=== PATIENT | female | born 1960 ===

== ENCOUNTER 2017-08-20 12:54 | Outpatient (CLI) | payer OTHER ==
[~2017-08-20 12:54] MED LIST: TUSSI PRES-B L120 M1 PO; ZITHROMAX TRI-500 MG PO
[2017-08-28] MEDS ORDERED: VITAMIN D1000 UNI1 PO (11:08)
[2017-08-28] MEDS ORDERED: PROGESTERONE200 MG PO (11:08)
[2017-08-28] MEDS ORDERED: CALTRATE 600+D1 EAC1 PO (11:09)
== END 2017-08-20 17:07 | disposition home or self-care (01) ==
LOC: LAB 12:54
DX: N95.1 Menopausal and female climacteric states (principal); E03.8 Other specified hypothyroidism; D64.89 Other specified anemias; E78.4 Other hyperlipidemia; M81.6 Localized osteoporosis [Lequesne]; M83.3 Adult osteomalacia due to malnutrition

== ENCOUNTER 2017-09-04 05:45 | Day surgery (SDC) | payer OTHER ==
[~2017-09-04 05:45] MED LIST changes: +CALTRATE 600+D1 EAC1 PO; +PROGESTERONE200 MG PO; +VITAMIN D1000 UNI1 PO
[2017-09-04] MEDS ORDERED: ULTRACET PO (08:53)
[2017-09-04] MEDS ORDERED: DUI500 PO (08:53)
== END 2017-09-04 14:15 | disposition home or self-care (01) ==
LOC: CIR.AMB 05:45
DX: S83.232A Complex tear of medial meniscus, current injury, left knee, initial encounter (principal); M94.262 Chondromalacia, left knee

== ENCOUNTER 2017-11-28 13:47 | Emergency (ER) | payer OTHER ==
[~2017-11-28] VITALS: Ht 149.9 cm; Wt 64.4 kg
[~2017-11-28 13:47] MED LIST changes: +DUI500 PO; +ULTRACET PO
[2017-11-28] MEDS ORDERED: NORFLEX PO (14:02)
[2017-11-28] MEDS ORDERED: CATAFLAN PO (14:02)
== END 2017-11-28 14:57 | disposition home or self-care (01) ==
LOC: ER 13:47
DX: M54.2 Cervicalgia (principal)

== ENCOUNTER → 2018-02-19 08:37 | Outpatient (CLI) | payer OTHER ==
[~2018-02-19 08:37] MED LIST changes: +CATAFLAN PO; +NORFLEX PO
== END | disposition home or self-care (01) ==
LOC: LAB 08:37
DX: E78.2 Mixed hyperlipidemia (principal); I11.9 Hypertensive heart disease without heart failure; E56.8 Deficiency of other vitamins; N39.0 Urinary tract infection, site not specified; Z12.11 Encounter for screening for malignant neoplasm of colon; R19.5 Other fecal abnormalities; E55.9 Vitamin D deficiency, unspecified; E11.9 Type 2 diabetes mellitus without complications; C18.0 Malignant neoplasm of cecum; K92.1 Melena; N28.89 Other specified disorders of kidney and ureter; E03.8 Other specified hypothyroidism; D64.89 Other specified anemias

== ENCOUNTER 2018-02-19 12:44 | Outpatient (CLI) | payer OTHER | END 2018-02-19 13:00 | disposition home or self-care (01) | LOC: TOM 12:44 | DX: S82.891A Other fracture of right lower leg, initial encounter for closed fracture (principal) ==

== ENCOUNTER 2018-07-31 07:37 | Outpatient (CLI) | payer OTHER | END 2018-07-31 08:17 | disposition home or self-care (01) | LOC: LAB 07:37 | DX: E03.8 Other specified hypothyroidism (principal); D50.8 Other iron deficiency anemias; E78.2 Mixed hyperlipidemia; I11.9 Hypertensive heart disease without heart failure; E56.8 Deficiency of other vitamins; N39.0 Urinary tract infection, site not specified; Z12.11 Encounter for screening for malignant neoplasm of colon; E55.9 Vitamin D deficiency, unspecified; N19 Unspecified kidney failure; E11.9 Type 2 diabetes mellitus without complications; R80.8 Other proteinuria; C18.0 Malignant neoplasm of cecum; K92.1 Melena; C18.9 Malignant neoplasm of colon, unspecified ==

== ENCOUNTER 2018-08-07 09:26 | Outpatient (CLI) | payer OTHER | END 2018-08-07 11:31 | disposition home or self-care (01) | LOC: LAB 09:26 | DX: D47.2 Monoclonal gammopathy (principal); M32.8 Other forms of systemic lupus erythematosus ==

== ENCOUNTER 2019-09-25 10:16 | Outpatient (CLI) | payer OTHER | END 2019-09-25 10:43 | disposition home or self-care (01) | LOC: LAB 10:16 | PROVIDERS: ATTEND Internal Medicine | DX: Z13.89 Encounter for screening for other disorder (principal) ==

== ENCOUNTER 2019-11-28 15:58 | Outpatient (CLI) | payer OTHER | END 2019-11-28 15:59 | disposition home or self-care (01) | LOC: PPH VACUNA 15:58 | DX: Z23 Encounter for immunization (principal) ==

== ENCOUNTER 2020-06-14 16:55 | Outpatient (CLI) | payer OTHER | END 2020-06-14 17:07 | disposition home or self-care (01) | LOC: LAB 16:55 | DX: Z20.828 Contact with and (suspected) exposure to other viral communicable diseases (principal) ==

== ENCOUNTER 2020-07-15 17:58 | Outpatient (CLI) | payer OTHER | END 2020-07-15 18:50 | disposition home or self-care (01) | LOC: LAB 17:58 | PROVIDERS: ATTEND Emergency Medicine Pediatric Emergency Medicine | DX: Z03.818 Encounter for observation for suspected exposure to other biological agents ruled out (principal) ==

== ENCOUNTER 2020-08-05 17:20 | Outpatient (CLI) | payer OTHER | END 2020-08-05 17:30 | disposition home or self-care (01) | LOC: LAB 17:20 | PROVIDERS: ATTEND Emergency Medicine Pediatric Emergency Medicine | DX: Z03.818 Encounter for observation for suspected exposure to other biological agents ruled out (principal) ==

== ENCOUNTER 2020-10-06 07:03 | Outpatient (CLI) | payer OTHER | END 2020-10-06 07:06 | disposition home or self-care (01) | LOC: MAMO-SONO 07:03 | PROVIDERS: ATTEND Internal Medicine | DX: N64.59 Other signs and symptoms in breast (principal); Z12.31 Encounter for screening mammogram for malignant neoplasm of breast; Z87.898 Personal history of other specified conditions ==

== ENCOUNTER → 2020-10-06 07:16 | Outpatient (CLI) | payer OTHER | END | disposition home or self-care (01) | LOC: LAB 07:16 | PROVIDERS: ATTEND Internal Medicine | DX: Z00.8 Encounter for other general examination (principal) ==

== ENCOUNTER 2020-12-09 08:00 | Outpatient (CLI) | payer OTHER | END 2020-12-09 08:30 | disposition home or self-care (01) | LOC: PPH VACUNA 08:00 | PROVIDERS: ATTEND Emergency Medicine Pediatric Emergency Medicine | DX: Z23 Encounter for immunization (principal) ==

== ENCOUNTER 2021-01-19 08:00 | Outpatient (CLI) | payer OTHER | END 2021-01-19 08:30 | disposition home or self-care (01) | LOC: PPH VACUNA 08:00 | PROVIDERS: ATTEND Emergency Medicine Pediatric Emergency Medicine | DX: Z23 Encounter for immunization (principal) ==

== ENCOUNTER 2021-01-20 17:21 | Outpatient (CLI) | payer OTHER | END 2021-01-20 18:00 | disposition home or self-care (01) | LOC: LAB 17:21 | PROVIDERS: ATTEND Internal Medicine | DX: Z03.818 Encounter for observation for suspected exposure to other biological agents ruled out (principal) ==

== ENCOUNTER 2021-03-04 13:16 | Outpatient (CLI) | payer OTHER | END 2021-03-04 13:21 | disposition home or self-care (01) | LOC: LAB 13:16 | DX: Z03.818 Encounter for observation for suspected exposure to other biological agents ruled out (principal) ==

== ENCOUNTER 2021-03-09 14:33 | Outpatient (CLI) | payer OTHER | END 2021-03-09 14:38 | disposition home or self-care (01) | LOC: LAB 14:33 | PROVIDERS: ATTEND Emergency Medicine Pediatric Emergency Medicine | DX: Z03.818 Encounter for observation for suspected exposure to other biological agents ruled out (principal) ==

== ENCOUNTER 2021-08-04 09:01 | Outpatient (CLI) | payer OTHER ==
[~2021-08-04 09:01] MED LIST changes: +IBU600 MG PO; +KETOROLAC60 MG/2 M1 IM; +NORFLEX100MG PO
== END 2021-08-04 10:20 | disposition home or self-care (01) ==
LOC: LAB 09:01
PROVIDERS: ATTEND Emergency Medicine Pediatric Emergency Medicine
DX: Z20.822 Contact with and (suspected) exposure to COVID-19 (principal)

== ENCOUNTER 2021-10-12 12:03 | Outpatient (CLI) | payer OTHER | END 2021-10-12 16:52 | disposition home or self-care (01) | LOC: LAB 12:03 | PROVIDERS: ATTEND Emergency Medicine Pediatric Emergency Medicine | DX: Z03.818 Encounter for observation for suspected exposure to other biological agents ruled out (principal) ==

== ENCOUNTER 2021-11-18 16:55 | Outpatient (CLI) | payer OTHER | END 2021-11-18 23:00 | disposition home or self-care (01) | LOC: LAB 16:55 | PROVIDERS: ATTEND Emergency Medicine Pediatric Emergency Medicine | DX: Z20.822 Contact with and (suspected) exposure to COVID-19 (principal) ==

== ENCOUNTER 2021-12-23 08:15 | Outpatient (CLI) | payer OTHER | END 2021-12-23 23:00 | disposition home or self-care (01) | LOC: LAB 08:15 | PROVIDERS: ATTEND Emergency Medicine Pediatric Emergency Medicine | DX: Z20.818 Contact with and (suspected) exposure to other bacterial communicable diseases (principal) ==

== ENCOUNTER 2022-01-03 16:00 | Outpatient (CLI) | payer OTHER | END 2022-01-04 16:05 | disposition home or self-care (01) | LOC: PPH VACUNA 16:00 | PROVIDERS: ATTEND Emergency Medicine Pediatric Emergency Medicine | DX: Z23 Encounter for immunization (principal) ==

== ENCOUNTER 2022-05-09 08:19 | Outpatient (CLI) | payer OTHER | END 2022-05-09 23:00 | disposition home or self-care (01) | LOC: LAB 08:19 | PROVIDERS: ATTEND General Practice | DX: R50.9 Fever, unspecified (principal); R05.8 Other specified cough; R06.02 Shortness of breath; Z20.822 Contact with and (suspected) exposure to COVID-19 ==

== ENCOUNTER 2022-07-19 07:50 | Outpatient (CLI) | payer OTHER | END 2022-07-19 07:55 | disposition home or self-care (01) | LOC: LAB 07:50 | PROVIDERS: ATTEND Internal Medicine Geriatric Medicine | DX: D50.9 Iron deficiency anemia, unspecified (principal); E03.9 Hypothyroidism, unspecified; E78.2 Mixed hyperlipidemia; I11.9 Hypertensive heart disease without heart failure; E56.8 Deficiency of other vitamins; N39.0 Urinary tract infection, site not specified; Z12.11 Encounter for screening for malignant neoplasm of colon; R19.5 Other fecal abnormalities; E55.9 Vitamin D deficiency, unspecified; N19 Unspecified kidney failure; E11.9 Type 2 diabetes mellitus without complications ==

== ENCOUNTER 2022-12-15 10:00 | Outpatient (CLI) | payer OTHER | END 2022-12-15 10:10 | disposition home or self-care (01) | LOC: PPH VACUNA 10:00 | PROVIDERS: ATTEND Emergency Medicine Pediatric Emergency Medicine | DX: Z23 Encounter for immunization (principal) ==

== ENCOUNTER 2023-06-15 07:42 | Outpatient (CLI) | payer OTHER ==
[2023-06-15 09:02] LABS: HEMATOCRIT 36.1 % (36.0-45.00); HEMOGLOBIN 11.7 g/dL (12.0-15.00); MEAN CORPUSCULAR HEMOGLOBIN 21.4 pg (27.00-32.0); MEAN CORPUSCULAR HGB CONC 32.3 g/dl (32.0-36.0); PLATELET COUNT 291 K/uL (150-450); RED BLOOD COUNT 5.45 M/uL (4.00-6.00); RED CELL DISTRIBUTION WIDTH 15.9 % (11.5-14.5)
[2023-06-15 09:04] LABS: PH,URINE 5.5 (5.0-8.0); URINE APPEARANCE Clear; URINE BILIRRUBIN Negative (NEGATIVE); URINE BLOOD Trace; URINE COLOR Yellow; URINE GLUCOSE Negative (NEGATIVE); URINE LEUKOCYTE Trace; URINE NITRATE Negative; URINE PROTEIN Negative (NEGATIVE); URINE UROBILINOGEN 0.2 E.U./dl
[2023-06-15 09:07] LABS: MEAN CELL VOLUME 66.2 fL (80.00-100.00)
[2023-06-15 09:08] LABS: URINE BACTERIA 23.9 uL (0.0-1933); URINE EPITHELIAL CELLS 8.9 uL (0.0-38.8); URINE RBC 6.4 uL (0.0-20.8)
[2023-06-15 10:04] LABS: ALBUMIN 3.6 gm/dL (3.4-5.0); BILIRUBIN TOTAL 0.43 mg/dL (0.3-1.2); CALCIUM 8.6 mg/dL (8.5-10.1); CHOL HDL RATIO 1.9 (0-5.0); CREATININE SERUM 0.64 mg/dL (0.55-1.02); GFR 94.34; GLOBULINA 3.3 G/DL (2.4-3.5); POTASSIUM 4.23 mEq/L (3.5-5.1); TOTAL PROTEIN 6.9 gm/dL (6.4-8.2); TSH 1.27 uIU/mL (0.358-3.74)
[2023-06-16 15:11] LABS: hav igm Negative (Negative); hcv Non Reactive (Non Reactive); hep b c Negative (Negative)
[2023-06-18 10:15] LABS: ob NEGATIVE (NEGATIVE)
== END 2023-06-15 07:52 | disposition home or self-care (01) ==
LOC: LAB 07:42
PROVIDERS: ATTEND Obstetrics & Gynecology
DX: Z12.11 Encounter for screening for malignant neoplasm of colon (principal); D64.9 Anemia, unspecified; E03.8 Other specified hypothyroidism; N95.1 Menopausal and female climacteric states; I10 Essential (primary) hypertension; C51.9 Malignant neoplasm of vulva, unspecified; N30.00 Acute cystitis without hematuria; E83.51 Hypocalcemia; A64 Unspecified sexually transmitted disease; N39.0 Urinary tract infection, site not specified; R97.8 Other abnormal tumor markers; R79.89 Other specified abnormal findings of blood chemistry; E55.9 Vitamin D deficiency, unspecified; A60.9 Anogenital herpesviral infection, unspecified; L29.9 Pruritus, unspecified; K85.90 Acute pancreatitis without necrosis or infection, unspecified; L93.0 Discoid lupus erythematosus

== ENCOUNTER 2023-06-15 10:04 | Outpatient (CLI) | payer OTHER | END 2023-06-15 13:55 | disposition home or self-care (01) | LOC: MAMO-SONO 10:04 | PROVIDERS: ATTEND Obstetrics & Gynecology | DX: N60.11 Diffuse cystic mastopathy of right breast (principal); N60.12 Diffuse cystic mastopathy of left breast ==

== ENCOUNTER 2023-06-15 15:42 | Outpatient (CLI) | payer OTHER | END 2023-06-15 15:45 | disposition home or self-care (01) | LOC: NUCLEAR 15:42 | PROVIDERS: ATTEND Obstetrics & Gynecology | DX: M81.0 Age-related osteoporosis without current pathological fracture (principal) ==

== ENCOUNTER → 2024-09-23 | Emergency (ER) | payer OTHER ==
[~2024-09-23] VITALS: Ht 149.9 cm; Wt 64.4 kg
[~2024-09-23] MED LIST changes: +0.9 % SODIUM CHLORIDE 500 ML IV ONE; +BENZONATATE 200 MG CAPSULE PO ONE; +BENZONATATE200 M1 PO; +CEFTRIAXONE SODIUM 1,000 MG VIAL IV ONE; +FAMOtidine 10 MG/ML (4ML VIAL) IV ONE; +LEVALBUTER0.63 MG/3 IH; +LEVALBUTEROL HCL 1.25 MG/3 ML SOLUTION IH ONE; +METHYLPREDNISOLONE SOD SUCC 125 MG VIAL IV ONE; +ONDANSETRON HCL 2 MG/ML VIAL IV ONE; +ZYRTEC10 MG PO
[2024-09-23 09:33] LABS: BASO % 0.3 % (0.1-1.2); EOS # 0.03 (0.04-0.54); EOS % 0.5 % (0.7-7.0); LYMPH # 0.67 (1.18-3.74); LYMPH % 10.1 % (19.3-53.1); MEAN PLATELET VOLUME 11.70 fl (9.4-12.4); MONO # 0.52 (0.24-0.82); MONO % 7.9 % (4.7-12.5); NEUT # 5.35 (1.56-6.13); NEUT % 80.9 % (34.0-71.1); RED CELL DISTRIBUTION WIDTH 15.7 % (11.6-14.4)
[2024-09-23 10:17] LABS: COVID-19 AG POSITIVE (NEGATIVE)
== END | disposition home or self-care (01) ==
LOC: ER 08:14
PROVIDERS: General Practice
DX: U07.1 COVID-19 (principal); J00 Acute nasopharyngitis [common cold]; Z88.8 Allergy status to other drugs, medicaments and biological substances

== ENCOUNTER 2024-11-25 10:18 | Outpatient (CLI) | payer OTHER ==
[~2024-11-25 10:18] MED LIST changes: -0.9 % SODIUM CHLORIDE 500 ML IV ONE; -BENZONATATE 200 MG CAPSULE PO ONE; -CEFTRIAXONE SODIUM 1,000 MG VIAL IV ONE; -FAMOtidine 10 MG/ML (4ML VIAL) IV ONE; -LEVALBUTEROL HCL 1.25 MG/3 ML SOLUTION IH ONE; -METHYLPREDNISOLONE SOD SUCC 125 MG VIAL IV ONE; -ONDANSETRON HCL 2 MG/ML VIAL IV ONE
== END 2024-11-25 10:38 | disposition home or self-care (01) ==
LOC: LAB 10:18
PROVIDERS: ATTEND Emergency Medicine Pediatric Emergency Medicine
DX: J15.7 Pneumonia due to Mycoplasma pneumoniae (principal); J20.9 Acute bronchitis, unspecified

== ENCOUNTER 2024-12-31 10:37 | Outpatient (CLI) | payer OTHER ==
[2024-12-31 11:45] LABS: URINE APPEARANCE Clear; URINE BILIRRUBIN Negative (NEGATIVE); URINE BLOOD Negative; URINE COLOR Yellow; URINE GLUCOSE Negative (NEGATIVE); URINE KETONE Negative (NEGATIVE); URINE LEUKOCYTE Negative; URINE NITRATE Negative; URINE PROTEIN Negative (NEGATIVE); URINE UROBILINOGEN 0.2 E.U./dl
[2024-12-31 11:46] LABS: URINE BACTERIA 44.3 uL (0.0-1933); URINE EPITHELIAL CELLS 3.8 uL (0.0-38.8); URINE RBC 6.3 uL (0.0-20.8); URINE WBC 1.9 uL (0.0-23.2)
[2024-12-31 11:48] LABS: BASO % 0.4 % (0.1-1.2); EOS # 0.11 (0.04-0.54); EOS % 1.6 % (0.7-7.0); LYMPH # 1.45 (1.18-3.74); LYMPH % 20.8 % (19.3-53.1); MONO # 0.31 (0.24-0.82); MONO % 4.4 % (4.7-12.5); NEUT # 5.06 (1.56-6.13); NEUT % 72.7 % (34.0-71.1); RED CELL DISTRIBUTION WIDTH 15.7 % (11.6-14.4)
[2024-12-31 11:54] LABS: URINE CAST 0.00 uL (0.0-1.40)
[2024-12-31 12:33] LABS: ALT/SGPT 20.0 U/L (12-78); AST/SGOT 14.0 U/L (15-37); BILIRUBIN TOTAL 0.5 mg/dL (0.3-1.2); BUN CREA RATIO 24.0 (7.0-25.0); CREATININE SERUM 0.67 mg/dL (0.55-1.02); GFR 89.18; GLOBULINA 3.3 G/DL (2.4-3.5); GLUCOSE FASTING 100.0 mg/dL (65-100); OSMOLALITY SERUM 283.0 MOSM/KG (275-295); TSH 1.29 uIU/mL (0.358-3.74)
[2024-12-31 13:07] LABS: VITAMIN D3 25 HYDROXY 26.03 ng/ml (30-120)
== END 2024-12-31 15:36 | disposition home or self-care (01) ==
LOC: LAB 10:37
PROVIDERS: ATTEND Emergency Medicine Pediatric Emergency Medicine
DX: E55.9 Vitamin D deficiency, unspecified (principal); R53.83 Other fatigue; E56.9 Vitamin deficiency, unspecified; E03.9 Hypothyroidism, unspecified; E11.65 Type 2 diabetes mellitus with hyperglycemia; R10.9 Unspecified abdominal pain

== ENCOUNTER 2025-01-06 14:04 | Outpatient (CLI) | payer OTHER | END 2025-01-06 14:14 | disposition home or self-care (01) | LOC: MAMO-SONO 14:04 | PROVIDERS: ATTEND Surgery | DX: N60.11 Diffuse cystic mastopathy of right breast (principal); N60.12 Diffuse cystic mastopathy of left breast ==